=== PATIENT | male | born 1980 | race Caucasian/White ===

== ENCOUNTER 2018-12-07 15:30 | Emergency (ER) | payer OTHER ==
[~2018-12-07] VITALS: Ht 182.9 cm; Wt 70.3 kg
--- NOTE | 2018-12-07 15:30 | NUR ---
Patient BIBA BLS, transferred to bed 11. RN evaluating patient at bedside.
[2018-12-07 15:34] VITALS: BP 140/83
--- NOTE | 2018-12-07 15:37 | NUR ---
ER NOTIFIED OF PT CONDITION, PER ER NO EKG ODERED
--- NOTE | 2018-12-07 15:40 | NUR ---
BIBA FOR ETOH. PT REPORTS HE WAS GOING THROUGH ALCOHOL WITHDRAWAL SO HE DRANK THIS MORNING. PT REPORTS CP WITH INSPIRATION AND SOB. CAP REFIL <2 SEC, HEART RRR, RR EVEN AND NON-LABORED, LUNG SOUNDS CLEAR THROUGHOUT. +N/V. SKIN IS PINK/WARM/DRY; AWAKE, ALERT.LUNGS CLEAR BL; HR EVEN AND REGULAR; PT DENIES ANY FEVER, OR COUGH AT THIS TIME; PATIENT STATES PAIN OF 10/10 AT THIS TIME; VSS; PATIENT POSITIONED FOR COMFORT; HOB ELEVATED; BEDRAILS UP X2; BED DOWN. ER MD MADE AWARE OF PT STATUS.
[2018-12-07] MEDS ORDERED: MULTIVITAMIN-12 10 ML, THIAMINE 100 MG, MAGNESIUM SULFATE 50% 2,000 MG, FOLIC ACID 5 MG... IV ONE ×5 (15:56)
[2018-12-07] MEDS ORDERED: NACL 0.9% 1,000 ML IV ONE (15:56)
[2018-12-07] MEDS ORDERED: PROMETHAZINE 25 MG/ML VIAL IM ONE (16:00)
[2018-12-07] MEDS ORDERED: FAMOTIDINE 20 MG/2 ML VIAL IVP ONE (16:00)
[2018-12-07] MEDS ORDERED: diphenhydrAMINE 50 MG/ML VIAL IVP ONE (16:00)
[2018-12-07 16:21] LABS: BASOPHILS % (AUTO) 0.2 % (0.0-2.0); EOSINOPHILS % (AUTO) 0.4 % (0.0-4.0); HEMATOCRIT 40.9 % (36-52); HEMOGLOBIN 13.7 g/dL (12.0-18.0); LYMPHOCYTES # (AUTO) 0.6 K/uL (2.0-11.5); LYMPHOCYTES % (AUTO) 7.2 % (20.5-51.1); MEAN CORPUSCULAR HEMOGLOBIN 29 pg (27-31); MEAN CORPUSCULAR HGB CONC 34 g/dL (33-37); MEAN CORPUSCULAR VOLUME 86.3 fL (80-94); MONOCYTES # (AUTO) 0.3 K/uL (0.8-1.0); MONOCYTES % (AUTO) 3.7 % (1.7-9.3); NEUTROPHILS # (AUTO) 7.9 K/uL (1.8-7.7); NEUTROPHILS % (AUTO) 88.5 % (42.2-75.2); PLATELET COUNT (AUTO) 254 K/uL (140-450); RED BLOOD CELL COUNT(AUTO) 4.74 MIL/uL (4.20-6.10); RED CELL DISTRIBUTION WIDTH 13.7 % (11.6-13.7); WHITE BLOOD COUNT (AUTO) 8.9 K/uL (4.8-10.8)
[2018-12-07 16:34] LABS: ANION GAP 16.1 (8-16); CARBON DIOXIDE 26.9 mmol/L (21-32); CHLORIDE 101 mmol/L (98-107); GFR ARICAN-AMERICAN 108 mL/min (>90); GLUCOSE 92 mg/dL (74-106); SODIUM SERUM 140 mmol/L (136-145); UREA NITROGEN, BLOOD 13 mg/dL (7-18)
[2018-12-07 16:40] LABS: ACETAMINOPHEN < 0.5 ug/ml (10-30); ALBUMIN 4.3 g/dL (3.4-5.0); ASPARTATE AMINOTRANSFERASE 73 U/L (15-37); TOTAL BILIRUBIN 0.6 mg/dL (0.0-1.0)
[2018-12-07 18:00] LABS: APPEARANCE,URINE CLEAR (CLEAR); BILIRUBIN,URINE 1+ (NEGATIVE); BLOOD, URINE TRACE-I (NEGATIVE); COLOR,URINE YELLOW (YELLOW); LEUKOCYTE ESTERASE ,URINE NEGATIVE (NEGATIVE); NITRITE, URINE NEGATIVE (NEGATIVE); UGLUCOSE NEGATIVE (NEGATIVE)
[2018-12-07 18:11] LABS: BARBITURATE, URINE NEG. ng/ml (NEG <=200); BENZODIAZEPINE, URINE NEG. ng/mL (NEG <=200); CANNABINOID, URINE POS. ng/mL (NEG <=50); COCAINE, URINE NEG. ng/mL (NEG <=300); OPIATE, URINE NEG. ng/mL (NEG <=2000); PHENCYCLIDINE SCREEN,URINE NEG. ng/mL (NEG <=25)
[2018-12-07 18:20] LABS: WBC,URINE 0-5 /HPF (0-5)
--- NOTE | 2018-12-07 18:30 | NUR ---
PATIENT PASSED ROAD TEST. ER MD NOTIFIED.
[2018-12-07 18:40] VITALS: BP 128/82
--- NOTE | 2018-12-07 18:40 | NUR ---
Patient given homeless packet. Patient signed waiver. Provided food, bus pass. Patient discharged with v/s stable. Written and verbal after care instructions given and explained. Patient verbalized understanding. Ambulatory with steady gait. All questions addressed prior to discharge. Advised to follow up with PMD.
--- NOTE | 2018-12-10 13:11 | NUR ---
Late entry. Confirmed with RN that 0.9 NS at 100 ml/hr IV and was discontinued at 1840 on discharge.
--- NOTE | 2018-12-12 08:34 | NUR ---
Late entry. MVI IV fliuds ran until discharge at 1840.
== END 2018-12-07 18:40 | disposition home or self-care (01) ==
LOC: MED 15:30
DX: R45.7 State of emotional shock and stress, unspecified (principal); F10.229 Alcohol dependence with intoxication, unspecified; F41.9 Anxiety disorder, unspecified; Z59.0 Homelessness; Z59.9 Problem related to housing and economic circumstances, unspecified; Y90.1 Blood alcohol level of 20-39 mg/100 ml
CPT/HCPCS: 36415; 71045; 80053; 80305; 81001; 85025; 87086; 96365; 96366; 96375; 99284; A9153; G0480; G0482; J1200; J2550; J3411; J3475; J3490; J7030; Q0092

== ENCOUNTER 2018-12-08 05:04 | Emergency (ER) | payer OTHER ==
[~2018-12-08] VITALS: Ht 175.3 cm; Wt 72.6 kg
[2018-12-08 05:06] VITALS: BP 127/82
--- NOTE | 2018-12-08 05:10 | NUR ---
PT BIBA C/O ABD PAIN. PT STATES HE WAS AT HIS FRIEND HOUSE AND WAS DRINKING BEER, WAS NOT ABLE TO FINISH ENTIRE BEER; RIGHT FLANK 10/10 PAIN RADIATING TO RIGHT SIDE OF BACK; +N/V; +TENDERNESS. PT MOANING, SPEAKING IN CLEAR AND COMPLETE SENTENCES. PT ACTING APPROPRIALTY. SKIN WARM, DIAPHORETIC AND INTACT. LBM: X3-4 DAYS AGO, PER PT. BOWEL SOUNDS ACTIVE THROUGH OUT. 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 PENDING ERMD EVAL. WILL CONTINUE TO MONITOR. PMH: DENIES
[2018-12-08] MEDS ORDERED: MORPHINE SULFATE 4 MG/ML SYR IVP ONE (05:25)
[2018-12-08] MEDS ORDERED: NACL 0.9% 1,000 ML IV ONE (05:25)
[2018-12-08] MEDS ORDERED: ONDANSETRON 4 MG/2 ML VIAL IVP ONE (05:25)
--- NOTE | 2018-12-08 05:32 | NUR ---
LABS DRAWN AND TAKEN TO LAB.
[2018-12-08 05:44] LABS: HEMATOCRIT 38.1 % (36-52); HEMOGLOBIN 12.8 g/dL (12.0-18.0); MEAN CORPUSCULAR HEMOGLOBIN 29 pg (27-31); MEAN CORPUSCULAR HGB CONC 34 g/dL (33-37); MEAN CORPUSCULAR VOLUME 86.1 fL (80-94); PLATELET COUNT (AUTO) 223 K/uL (140-450); RED BLOOD CELL COUNT(AUTO) 4.43 MIL/uL (4.20-6.10); RED CELL DISTRIBUTION WIDTH 13.1 % (11.6-13.7); WHITE BLOOD COUNT (AUTO) 9.8 K/uL (4.8-10.8)
[2018-12-08 05:57] LABS: ANION GAP 16.1 (8-16); CARBON DIOXIDE 23.2 mmol/L (21-32); CREATININE 0.8 mg/dL (0.7-1.3); POTASSIUM 3.3 mmol/L (3.5-5.1)
--- NOTE | 2018-12-08 06:00 | NUR ---
TO CT VIA [facility]
[2018-12-08 06:03] LABS: ALBUMIN 3.5 g/dL (3.4-5.0); TOTAL BILIRUBIN 1.1 mg/dL (0.0-1.0)
[2018-12-08 06:05] LABS: EOSINOPHILS % (MANUAL) 1 % (0-4); LYMPHOCYTES % (MANUAL) 7 % (20-46); MONOCYTES % (MANUAL) 4 % (5-12)
--- NOTE | 2018-12-08 06:39 | NUR ---
PT AROUSABLE TO VOICE, PT STATES PAIN HAS DECREASED TO 0/10 AND PT IS ABLE TO SLEEP. PT POSITIONED FOR COMFORT; VSS. WILL CONTINUE TO MONITOR.
--- NOTE | 2018-12-08 07:03 | NUR ---
Pt report given to KIANA Adame. Transfer of care at this time.
--- NOTE | 2018-12-08 07:03 | NUR ---
RECEIVED REPORT FROM KIANA MARTINEZ FOR TRANSFER OF CARE.
--- NOTE | 2018-12-08 07:03 | NUR ---
PT ASLEEP. PT EASILY AROUSABLE BY NAME. FULL CLEAR SPEECH. NO SIGNS AND SYMPTOMS OF DISTRESS NOTED. VSS.
--- NOTE | 2018-12-08 07:25 | NUR ---
[facility]IVER FORM SIGNED, HOMELESS PACKET RESOURCES, BUS VOUCHER AND FOOD TO GO GIVEN.
[2018-12-08 07:35] VITALS: BP 130/81
--- NOTE | 2018-12-08 07:35 | NUR ---
Patient discharged with v/s stable. Written and verbal after care instructions given and explained. Patient alert, oriented and verbalized understanding of instructions. Ambulatory with steady gait. All questions addressed prior to discharge. ID band removed. Patient advised to follow up with PMD. Rx of Zofran ODT, Tylenol with Codeine No. 3 given. Patient educated on indication of medication including possible reaction and side effects. Opportunity to ask questions provided and answered.
== END 2018-12-08 07:35 | disposition home or self-care (01) ==
LOC: MED 05:04
DX: K29.20 Alcoholic gastritis without bleeding (principal); F10.10 Alcohol abuse, uncomplicated
CPT/HCPCS: 36415; 74177; 80053; 82150; 83690; 85025; 96374; 96375; 99284; J2270; J2405; J7030; Q9967